=== PATIENT | male | born 1980 | race Caucasian/White ===

== ENCOUNTER 2024-05-30 10:42 | Emergency (ER) | payer BC ==
[~2024-05-30] VITALS: Ht 182.9 cm; Wt 85.0 kg
[2024-05-30 10:43] VITALS: O2SAT 100
[2024-05-30] MEDS: LORAZEPAM 0.5MG TABLET PO ONE (11:37)
[2024-05-30 12:22] LABS: BASOPHILS % 0.4 % (0.0-2.0); EOSINOPHILS % 0.6 % (0.0-5.0); HEMOGLOBIN. 15.2 g/dL (14.0-18.0); LYMPHOCYTES % 18.1 % (20.0-50.0); MEAN CORPUSCULAR HEMOGLOBIN 29.3 pg (28.0-32.0); MEAN CORPUSCULAR HGB CONC 33.7 g/dL (31.0-37.0); MEAN CORPUSCULAR VOLUME 87.1 fL (80.0-94.0); MEAN PLATELET VOLUME 7.3 fl (7.4-10.4); MONOCYTES % 9.8 % (2.0-8.0); NEUTROPHILS % 71.1 % (40.0-76.0); PLATELET 240 x1000/uL (130-400); RED BLOOD CELL COUNT 5.17 mill/uL (4.7-6.1); RED CELL DISTRIBUTION WIDTH 13.4 % (11.6-14.6); WHITE BLOOD COUNT 6.7 x1000/uL (4.5-11.0)
[2024-05-30 12:27] LABS: CHLORIDE 107 mEq/L (98-107); POTASSIUM 3.9 mEq/L (3.5-5.1); SODIUM 141 mEq/L (136-145)
[2024-05-30 12:28] LABS: CALCIUM 9.9 mg/dL (8.7-10.4); CARBON DIOXIDE 25 mEq/L (21-32)
[2024-05-30 12:33] LABS: GLUCOSE 122 mg/dL (70-105); UREA NITROGEN BLOOD 14 mg/dL (9-23)
[2024-05-30 12:34] LABS: ALANINE AMINOTRANSFERASE 30 IU/L (10-49)
[2024-05-30 12:35] LABS: ALBUMIN 4.5 g/dL (3.2-4.8); ASPARTATE AMINOTRANSFERASE 23 IU/L (<34); BILIRUBIN TOTAL 0.4 mg/dL (0.1-1.0); PROTEIN TOTAL 6.8 g/dL (6.0-8.3)
[2024-05-30 12:39] VITALS: BP 150/97; PULSE 77; RESP 18; TEMP 37.1; O2SAT 99
[2024-05-30 12:44] LABS: TROPONIN I HIGH SENSITIVITY < 4 ng/L (3.0-53)
== END 2024-05-30 13:30 | disposition home or self-care (01) ==
LOC: ER 10:57
DX: R20.2 Paresthesia of skin (principal); I10 Essential (primary) hypertension; Z79.899 Other long term (current) drug therapy
CPT/HCPCS: 80053; 83880; 85025; 84484; 36415; 93005; 99284; Z7610; 99283